=== PATIENT | male | born 1970 | race American Indian/Alaskan Native ===

== ENCOUNTER 2016-06-25 06:39 | Emergency (ER) | payer SELFPAY ==
[2016-06-25] MEDS ORDERED: ZOFRAN IV ONE (07:51)
[2016-06-25] MEDS ORDERED: NACL 0.9% 1000 ML 1,000 ML IV ONE (07:51)
[2016-06-25 07:58] LABS: Basophils % (Auto) 0.2 % (0.0-1.8); Eosinophils % (Auto) 0.1 % (0.0-4.3); Hematocrit 45.4 % (35.5-45.6); Hemoglobin 14.6 gm/dl (11.8-15.2); Mean Corpuscular HGB Conc 32 % (32-34); Mean Corpuscular Volume 78 fl (84-94); Platelet Count 198 K/mm3 (140-440); Red Blood Count 5.86 M/mm3 (3.65-5.03); Red Cell Distribution Width 13.7 % (13.2-15.2); White Blood Count 11.4 K/mm3 (4.5-11.0)
[2016-06-25] MEDS ORDERED: MORPHINE IV ONE ×2 (08:01→09:48)
[2016-06-25] MEDS ORDERED: ZOSYN/NS 3.375GM/50ML 3.375 GM/50 ML BAG IV ONE (08:01)
[2016-06-25] MEDS ORDERED: NACL ONE (08:03)
[2016-06-25 08:12] LABS: Alanine Aminotransferase 27 units/L (7-56); Albumin 4.2 g/dL (3.9-5); Albumin/Globulin Ratio 1.1 %; Alkaline Phosphatase 56 units/L (35-129); Anion Gap 21 mmol/L; BUN/Creatinine Ratio 20.83; Bilirubin,Total 0.7 mg/dL (0.1-1.2); Blood Urea Nitrogen 25 mg/dL (9-20); Calcium 9.5 mg/dL (8.4-10.2); Carbon Dioxide 25 mmol/L (22-30); Chloride 96.9 mmol/L (98-107); Glucose 123 mg/dL (75-100); Lipase 16 units/L (13-60); Potassium 3.4 mmol/L (3.6-5.0); Sodium 139 mmol/L (137-145)
[2016-06-25 08:20] LABS: Urine Drugs of Abuse Note Disclamer
[2016-06-25 08:21] LABS: Mean Corpuscular Hemoglobin 25 pg (28-32)
[2016-06-25 08:35] LABS: Bilirubin,Urine Negative (Negative); Blood,Urine Negative (Negative); Ketones,Urine 15 mg/dL (Negative); Leukocyte Esterase,Urine Negative (Negative); Nitrite,Urine Negative (Negative); Urobilinogen,Urine 0.2 mg/dL (<2.0)
[2016-06-25 08:49] LABS: Mucus,Urine 1+ /HPF
--- NOTE | 2016-06-25 09:48 | Cat Scan Report ---
CT SCAN OF THE ABDOMEN AND PELVIS WITH CONTRAST: HISTORY: Right lower quadrant abdominal pain, vomiting. TECHNIQUE: Helical CT in 1.25mm intervals following IV contrast. Sagittal and coronal reconstructions. FINDINGS: The liver is normal in size and is without focal defect. No gallstones or biliary dilatation are noted. The spleen and pancreas demonstrate a normal size and attenuation with no evidence of abnormal mass. The kidneys are normal in size and position with no evidence of hydronephrosis or mass. The adrenal glands are normal. There is no intestinal obstruction or ascites. Normal appendix. The abdominal aorta is normal. No abnormalities are identified within the retroperitoneum or mesentery. There is no evidence of peritoneal air or fluid. There is no evidence of any abnormal masses or fluid collections within the pelvis. No adenopathy is identified. The bladder is normal. IMPRESSION: Unremarkable CT scan of the abdomen and pelvis with contrast.
[2016-06-25 10:07] VITALS: BP 118/83
--- NOTE | 2016-06-25 10:15 | Emergency Department Report ---
ED General Adult HPI - General Chief complaint: Abdominal Pain Stated complaint: EMESIS Time Seen by Provider: 06/25/16 07:48 Source: patient, EMS Mode of arrival: Stretcher Limitations: No Limitations - History of Present Illness Initial comments: Patient states at triage "I need my stomach problem". He believes that he has food poisoning from eating scallops on Friday. She complained of generalized abdominal pain. He states he took a laxative yesterday. He had hernia surgery many years but no history of SBO. He states he had a small bowel movement. He denies any recent fever or chills. -: Gradual, days(s) Location: abdomen Radiation: non-radiation Quality: aching Consistency: intermittent Improves with: none Worsens with: none Associated Symptoms: nausea/vomiting Treatments Prior to Arrival: none - Related Data Previous Rx's Medication Instructions Recorded Last Taken Type Ondansetron [Zofran Odt] 4 mg PO Q6H #7 tab.rapdis 06/25/16 Unknown Rx traMADol [Ultram] 50 mg PO Q6HR PRN #14 tablet 06/25/16 Unknown Rx Allergies Allergy/AdvReac Type Severity Reaction Status Date / Time No Known Allergies Allergy Unverified 06/25/16 07:21 ED Review of Systems ROS: Stated complaint: EMESIS Other details as noted in HPI Constitutional: denies: chills, fever Eyes: denies: eye pain, eye discharge, vision change ENT: denies: ear pain, throat pain Respiratory: denies: cough, shortness of breath, wheezing Cardiovascular: denies: chest pain, palpitations Endocrine: no symptoms reported Gastrointestinal: abdominal pain, nausea, vomiting. denies: diarrhea Genitourinary: denies: urgency, dysuria Musculoskeletal: denies: back pain, joint swelling, arthralgia Skin: denies: rash, lesions Neurological: denies: headache, weakness, paresthesias Psychiatric: denies: anxiety, depression Hematological/Lymphatic: denies: easy bleeding, easy bruising ED Past Medical Hx - Past Medical History Previous Medical History?: No - Surgical History Past Surgical History?: Yes Additional Surgical History: Hernia repair in the s - Social History Smoking Status: Never Smoker Substance Use Type: None - Medications Home Medications: Home Medications Medication Instructions Recorded Confirmed Last Taken Type Ondansetron [Zofran Odt] 4 mg PO Q6H #7 tab.rapdis 06/25/16 Unknown Rx traMADol [Ultram] 50 mg PO Q6HR PRN #14 tablet 06/25/16 Unknown Rx ED Physical Exam - General Limitations: No Limitations General appearance: alert, in no apparent distress - Head Head exam: Present: atraumatic, normocephalic - Eye Eye exam: Present: normal appearance. Absent: scleral icterus - ENT ENT exam: Present: mucous membranes moist - Neck Neck exam: Present: normal inspection - Respiratory Respiratory exam: Present: normal lung sounds bilaterally. Absent: respiratory distress - Cardiovascular Cardiovascular Exam: Present: regular rate, normal rhythm. Absent: systolic murmur, diastolic murmur, rubs, gallop - GI/Abdominal GI/Abdominal exam: Present: soft, tenderness (some suprapubic discomfort was found no guarding no rebound no distention), normal bowel sounds. Absent: distended, guarding, rebound, rigid, organomegaly, mass, bruit, pulsatile mass, hernia (HEALED right inguinal herniorrhaphy scar no evidence of recurrence) - Rectal Rectal exam: Present: deferred - Extremities Exam Extremities exam: Present: normal inspection - Back Exam Back exam: Present: normal inspection. Absent: CVA tenderness (R), CVA tenderness (L) - Neurological Exam Neurological exam: Present: alert, oriented X3 - Psychiatric Psychiatric exam: Present: normal affect, normal mood - Skin Skin exam: Present: warm, dry, intact, normal color. Absent: rash ED Course Vital Signs 06/25/16 06/25/16 06/25/16 07:43 08:10 10:00 Pulse Rate 75 82 Respiratory 16 16 18 Rate Blood Pressure 135/78 118/83 [Left] O2 Sat by Pulse 96 97 100 Oximetry - Reevaluation(s) Reevaluation #1: Patient is given IV fluids Zosyn for antibiotic coverage in case and ensure optimal infection was found. His CT with contrast was actually negative. On reexamination he stated that he would like to description for pain. He stated that he really didn't want follow up with anyone but I encouraged him to do so. I also explained return criteria. He is appropriate for outpatient disposition. His abdominal pain has improved. 06/25/16 10:21 ED Medical Decision Making - Lab Data Result diagrams: 06/25/16 07:30 06/25/16 07:30 Laboratory Results - last 24 hr 06/25/16 06/25/16 06/25/16 07:30 07:30 07:30 WBC 11.4 H RBC 5.86 H Hgb 14.6 Hct 45.4 MCV 78 L MCH 25 L MCHC 32 RDW 13.7 Plt Count 198 Lymph % (Auto) 15.9 Garfield % (Auto) 10.0 H Eos % (Auto) 0.1 Baso % (Auto) 0.2 Lymph # 1.8 Garfield # 1.1 H Eos # 0.0 Baso # 0.0 Seg Neutrophils % 73.8 H Seg Neutrophils # 8.4 H Sodium 139 Potassium 3.4 L Chloride 96.9 L Carbon Dioxide 25 Anion Gap 21 BUN 25 H Creatinine 1.2 Estimated GFR > 60 BUN/Creatinine Ratio 20.83 Glucose 123 H Calcium 9.5 Total Bilirubin 0.7 AST 32 ALT 27 Alkaline Phosphatase 56 Total Protein 8.0 Albumin 4.2 Albumin/Globulin Ratio 1.1 Lipase 16 Urine Color Dark yellow Urine Turbidity Hazy Urine pH 6.0 Ur Specific [place] 1.025 Urine Protein 30 mg/dl Urine Glucose (UA) Negative Urine Ketones 15 Urine Blood Negative Urine Nitrite Negative Urine Bilirubin Negative Urine Urobilinogen 0.2 Ur Leukocyte Esterase Negative Urine WBC (Auto) 2.0 Urine RBC (Auto) 1.0 Urine Mucus 1+ Urine Opiates Screen Urine Methadone Screen Ur Barbiturates Screen Ur Phencyclidine Scrn Ur Amphetamines Screen U Benzodiazepines Scrn Urine Cocaine Screen U Marijuana (THC) Screen Drugs of Abuse Note 06/25/16 07:30 WBC RBC Hgb Hct MCV MCH MCHC RDW Plt Count Lymph % (Auto) [place] % (Auto) Eos % (Auto) Baso % (Auto) Lymph # [place] # Eos # Baso # Seg Neutrophils % Seg Neutrophils # Sodium Potassium Chloride Carbon Dioxide Anion Gap BUN Creatinine Estimated GFR BUN/Creatinine Ratio Glucose Calcium Total Bilirubin AST ALT Alkaline Phosphatase Total Protein Albumin Albumin/Globulin Ratio Lipase Urine Color Urine Turbidity Urine pH Ur Specific [place] Urine Protein Urine Glucose (UA) Urine Ketones Urine Blood Urine Nitrite Urine Bilirubin Urine Urobilinogen Ur Leukocyte Esterase Urine WBC (Auto) Urine RBC (Auto) Urine Mucus Urine Opiates Screen Presumptive negative Urine Methadone Screen Presumptive negative Ur Barbiturates Screen Presumptive negative Ur Phencyclidine Scrn Presumptive negative Ur Amphetamines Screen Presumptive negative U Benzodiazepines Scrn Presumptive negative Urine Cocaine Screen Presumptive negative U Marijuana (THC) Screen Presumptive positive Drugs of Abuse Note Disclamer Critical care attestation.: If time is entered above; I have spent that time in minutes in the direct care of this critically ill patient, excluding procedure time. ED Disposition Clinical Impression: Abdominal pain Qualifiers: Abdominal location: unspecified location Qualified Code(s): R10.9 - Unspecified abdominal pain Disposition: DISCHARGED TO HOME OR SELFCARE Is pt being admited?: No Does the pt Need Aspirin: No Condition: Stable Instructions: Abdominal Pain (ED) Additional Instructions: Evaluation and follow-up is indicated. Return if the pain worsens vomiting recurs fever or chills. See referrals. Prescriptions: Ondansetron [Zofran Odt] 4 mg PO Q6H #7 tab.rapdis traMADol [Ultram] 50 mg PO Q6HR PRN #14 tablet PRN Reason: Pain Referrals: PRIMARY CARE [Primary Care Provider] - 3-5 Days [facility] [Provider Group] - 2-3 Days [facility] [Provider Group] - 24 Hours Time of Disposition: 10:23
[2016-06-25] MEDS ORDERED: K-DUR PO ONE (10:16)
== END 2016-06-25 10:28 | disposition home or self-care (01) ==
LOC: ED 06:39
DX: R10.9 Unspecified abdominal pain (principal)
CPT/HCPCS: 36415; 74177; 80053; 80307; 81001; 83690; 85025; 93005; 93010; 96361; 96365; 96375; 96376; 99285; J2270; J2405; J2543; J7030; Q9967